=== PATIENT | male | born 1960 | race Caucasian/White ===

== ENCOUNTER 2025-07-14 19:01 | Emergency (ER) | payer MEDICARE, SELFPAY ==
[2025-07-14 19:05] VITALS: BP 180/59; PULSE 62; TEMP 36.9; O2SAT 98; BMI 50.1
--- NOTE | 2025-07-14 19:15 | PC.NURSE ---
Fall approx. 2 hours ago from standing. Pain present to mid left back, patient reports having chronic back pain and sees a pain specialist for this. Moves from w/c to bed with use of cane.
--- NOTE | 2025-07-14 19:23 | CT_ITS ---
The [address] [address] Patient Name: MIKE ZAMUDIO MRN: [id number] date: 1960 Sex: M Assigned Patient Location: ED.MAIN Current Patient Location: ED.MAIN Accession/Order Number: [id number] Exam Date: 07/14/2025 20:25 Report Date: 07/14/2025 21:06 At the request of: SHYLA VIGIL Procedure: CT head/brain wo con Unenhanced head CT TECHNIQUE: Contiguous axial imaging of the head. The CT exam was performed using one or more the following dose reduction techniques: Automated exposure control, adjustment of the MA and/or Kv according to patient size, or use of the iterative reconstruction technique. COMPARISON: None HISTORY: Fell. Right rib pain. Right flank pain. Low back pain VENTRICLES: Within normal limits ATROPHY: None BRAIN PARENCHYMA: Adequate walker-white matter differentiation identified. HEMORRHAGE: None HERNIATION: No mass effect or herniation INFARCTION: No recent vascular distribution infarction is seen. EXTRA-AXIAL FLUID COLLECTIONS None MIDBRAIN: Unremarkable MOLLY: Unremarkable MEDULLA: Unremarkable SINUSES: Unremarkable ORBITS: Grossly unremarkable MASTOIDS: Unremarkable BONY STRUCTURES Intact ADDITIONAL FINDINGS: CT/CT head/brain wo con IMPRESSION: No acute findings. Impression dictated by: Corey Marcus M.D. 07/14/2025 9:06 PM Dictation Location: [place] [address] Electronically authenticated by: [id number] Y Date: 07/14/2025 21:06
--- NOTE | 2025-07-14 19:23 | CT_ITS ---
The [address] [address] Patient Name: MIKE ZAMUDIO MRN: [id number] date: 1960 Sex: M Assigned Patient Location: ED.MAIN Current Patient Location: ED.MAIN Accession/Order Number: [id number] Exam Date: 07/14/2025 20:25 Report Date: 07/14/2025 21:20 At the request of: SHYLA VIGIL Procedure: CT abdomen pelvis w con CT Chest, Abdomen and Pelvis with contrast TECHNIQUE: Axial imaging with 2-D reconstruction. 100 cc of Omnipaque 300The CT exam was performed using one or more the following dose reduction techniques: Automated exposure control, adjustment of the MA and/or Kv according to patient size, or use of the iterative reconstruction technique. History: Fell. Right rib pain. Right flank pain. Low back pain COMPARISON: None THYROID: No significant thyroid abnormality identified. AIRWAY: Central airway is patent. ESOPHAGUS: Esophagus normal course and caliber. HEART: Heart is not enlarged. PERICARDIAL EFFUSION: None CORONARY ARTERY CALCIFICATION: None MEDIASTINUM: Nonenlarged mediastinal lymph nodes identified. HILAR REGION: No hilar mass or adenopathy is seen. THORACIC AORTA: No thoracic aortic aneurysm or dissection. No atherosclerosis LUNG INTERSTITIUM: No infiltrate or congestion identified. PLEURAL EFFUSION No pleural effusion identified. PNEUMOTHORAX: No pneumothorax seen. LUNG NODULE: No lung nodules identified. CHEST WALL: No chest wall abnormality seen. The bony chest intact. LIVER: No hepatic mass or intrahepatic biliary ductal dilatation is identified. Normal density of the liver parenchyma identified. GALLBLADDER: No gallbladder abnormalities identified. BILE DUCTS: No biliary duct dilatation identified. SPLEEN: Normal PANCREAS: Unremarkable ADRENAL GLANDS: The adrenal glands are unremarkable. KIDNEYS: Unremarkable ABDOMINAL AORTA: The abdominal aorta is normal. RETROPERITONEUM: No significant retroperitoneal abnormalities identified. STOMACH:Nondistended SMALL BOWEL: The small bowel loops are nondistended. APPENDIX: The appendix is normal. COLON: There is no colitis or diverticulitis. URINARY BLADDER: Urinary bladder is unremarkable. REPRODUCTIVE STRUCTURES: The reproductive structures are unremarkable. FREE AIR: None FREE FLUID: None ABDOMINAL WALL: No subcutaneous soft tissue abnormality identified. INGUINAL HERNIA: None BONES:Transverse fracture involving the T9 superior endplate and T8-9 anterior osteophyte extending into the T8 posterior elements. Ankylosing spondylitis throughout the cervical thoracic and lumbar spine CT/CT abdomen pelvis w con IMPRESSION: Transverse fracture involving the anterior T8-9 continuous osteophyte and superior portion of the T9 vertebral body extending into the posterior element of the T8 vertebral body. Minimal displacement. No acute chest or abdominal pelvic findings otherwise seen. The anterior portion of the abdomen not included on study. This is secondary patient body habitus. Findings of ankylosing spondylitis. PRELIMINARY RESULTS: None given Impression dictated by: Corey Marcus M.D. 07/14/2025 9:20 PM Dictation Location: [employer] Electronically authenticated by: [id number] Y Date: 07/14/2025 21:20
--- NOTE | 2025-07-14 19:23 | CT_ITS ---
The [address] [address] Patient Name: MIKE ZAMUDIO MRN: [id number] date: 1960 Sex: M Assigned Patient Location: ED.MAIN Current Patient Location: ED.MAIN Accession/Order Number: [id number] Exam Date: 07/14/2025 20:25 Report Date: 07/14/2025 21:09 At the request of: SHYLA VIGIL Procedure: CT cervical spine wo con CT Cervical Spine withoutcontrast TECHNIQUE: Axial imaging with 2-D and 3-D reconstruction. The CT exam was performed using one or more the following dose reduction techniques: Automated exposure control, adjustment of the MA and/or Kv according to patient size, or use of the iterative reconstruction technique. COMPARISON: None HISTORY: Fell. Head injury POST SURGERY CHANGES: None BONY ALIGNMENT: Straightening BONY SPINAL CANAL: Patent central bony canal FRACTURE: None BONY LESIONS: None SOFT TISSUES: Unremarkable DEGENERATIVE CHANGES: Multilevel spondylosis and facet degeneration LUNG APICES: Unremarkable ADDITIONAL FINDINGS: CT/CT cervical spine wo con IMPRESSION: No acute process Impression dictated by: Corey Marcus M.D. 07/14/2025 9:09 PM Dictation Location: [place] [address] Electronically authenticated by: [id number] Y Date: 07/14/2025 21:09
--- NOTE | 2025-07-14 19:23 | CT_ITS ---
The [address] [address] Patient Name: MIKE ZAMUDIO MRN: [id number] date: 1960 Sex: M Assigned Patient Location: ED.MAIN Current Patient Location: ED.MAIN Accession/Order Number: [id number] Exam Date: 07/14/2025 20:25 Report Date: 07/14/2025 21:20 At the request of: SHYLA VIGIL Procedure: CT abdomen pelvis w con CT Chest, Abdomen and Pelvis with contrast TECHNIQUE: Axial imaging with 2-D reconstruction. 100 cc of Omnipaque 300The CT exam was performed using one or more the following dose reduction techniques: Automated exposure control, adjustment of the MA and/or Kv according to patient size, or use of the iterative reconstruction technique. History: Fell. Right rib pain. Right flank pain. Low back pain COMPARISON: None THYROID: No significant thyroid abnormality identified. AIRWAY: Central airway is patent. ESOPHAGUS: Esophagus normal course and caliber. HEART: Heart is not enlarged. PERICARDIAL EFFUSION: None CORONARY ARTERY CALCIFICATION: None MEDIASTINUM: Nonenlarged mediastinal lymph nodes identified. HILAR REGION: No hilar mass or adenopathy is seen. THORACIC AORTA: No thoracic aortic aneurysm or dissection. No atherosclerosis LUNG INTERSTITIUM: No infiltrate or congestion identified. PLEURAL EFFUSION No pleural effusion identified. PNEUMOTHORAX: No pneumothorax seen. LUNG NODULE: No lung nodules identified. CHEST WALL: No chest wall abnormality seen. The bony chest intact. LIVER: No hepatic mass or intrahepatic biliary ductal dilatation is identified. Normal density of the liver parenchyma identified. GALLBLADDER: No gallbladder abnormalities identified. BILE DUCTS: No biliary duct dilatation identified. SPLEEN: Normal PANCREAS: Unremarkable ADRENAL GLANDS: The adrenal glands are unremarkable. KIDNEYS: Unremarkable ABDOMINAL AORTA: The abdominal aorta is normal. RETROPERITONEUM: No significant retroperitoneal abnormalities identified. STOMACH:Nondistended SMALL BOWEL: The small bowel loops are nondistended. APPENDIX: The appendix is normal. COLON: There is no colitis or diverticulitis. URINARY BLADDER: Urinary bladder is unremarkable. REPRODUCTIVE STRUCTURES: The reproductive structures are unremarkable. FREE AIR: None FREE FLUID: None ABDOMINAL WALL: No subcutaneous soft tissue abnormality identified. INGUINAL HERNIA: None BONES:Transverse fracture involving the T9 superior endplate and T8-9 anterior osteophyte extending into the T8 posterior elements. Ankylosing spondylitis throughout the cervical thoracic and lumbar spine CT/CT chest w con IMPRESSION: Transverse fracture involving the anterior T8-9 continuous osteophyte and superior portion of the T9 vertebral body extending into the posterior element of the T8 vertebral body. Minimal displacement. No acute chest or abdominal pelvic findings otherwise seen. The anterior portion of the abdomen not included on study. This is secondary patient body habitus. Findings of ankylosing spondylitis. PRELIMINARY RESULTS: None given Impression dictated by: Corey Marcus M.D. 07/14/2025 9:20 PM Dictation Location: [employer] Electronically authenticated by: [id number] Y Date: 07/14/2025 21:20
--- NOTE | 2025-07-14 19:29 | ED.GENADUL1 ---
HPI HPI - General Adult General Chief complaint: Fall Stated complaint: FALL Time Seen by Provider: 07/14/25 19:12 Source: patient and family Mode of arrival: Wheelchair Limitations: no limitations History of Present Illness Onset (ago): hour(s) (3 hrs) Location: Reports head, face, back and upper extremity Severity: moderate Treatments prior to arrival: Reports other (percocet) Related Data Home Medications ?Medication ?Instructions ?Recorded ?Confirmed amlodipine 10 mg tablet 10 mg PO DAILY 07/14/25 07/14/25 bumetanide 1 mg tablet 1 mg PO DAILY 07/14/25 07/14/25 metoprolol succinate 100 mg 100 mg PO DAILY 07/14/25 07/14/25 tablet,extended release 24 hr oxybutynin 07/14/25 oxycodone-acetaminophen 10 mg-325 1 tab PO Q4H 07/14/25 07/14/25 mg tablet (Endocet) pregabalin 50 mg capsule (Lyrica) 50 mg PO Q8H 07/14/25 07/14/25 Previous Rx's ?Medication ?Instructions ?Recorded tizanidine 4 mg tablet 4 mg PO Q8H PRN muscle spasm #10 07/14/25 tabs Allergies Allergy/AdvReac Type Severity Reaction Status Date / Time cephalexin (From Keflex) Allergy unknown Verified 07/14/25 19:11 gabapentin Allergy Unknown Verified 07/14/25 19:11 Opioid HPI Opioid Management Most Recent Opioid Data: Last Pain Scale 9 07/14/25, 19:05 Review of Systems ROS Status of ROS 10 or more systems reviewed and unremarkable except as noted in history and below Constitutional Denies: fever or chills Eyes Denies: change in vision or blurry vision Ears, nose, mouth, and throat Denies: throat pain, ear pain, ear discharge, change in hearing, nasal discharge, nasal congestion or nose bleeds Cardiovascular Denies: chest pain Respiratory Denies: shortness of breath or cough Gastrointestinal Denies: abdominal pain, nausea or vomiting Genitourinary Denies: blood in urine Musculoskeletal Reports: back pain, neck pain and extremity pain Neurological Reports: headache Psychiatric Denies: anxiety Hematologic/Lymphatic Denies: easy bruising Allergic/Immunologic Denies: hives PFSH PFSH Social History Little interest or pleasure in doing things: not at all Feeling down, depressed, or hopeless: not at all Exam Constitutional Vital Signs, click to edit/add: Last Vital Signs Temp 98.4 F 07/14/25 19:05 Pulse 64 07/14/25 20:40 Resp 20 07/14/25 20:40 BP 174/70 H 07/14/25 20:40 Pulse Ox 99 07/14/25 20:40 O2 Del Method Room Air 07/14/25 20:40 Documenting provider has reviewed patient's vital signs: yes Common normals: no apparent distress and oriented x3 General appearance: cooperative HENMT Head and scalp: contusion (frontal) Face and sinus: sinuses nontender Nose: nares normal, no nasal discharge and external nose abnormal; external nose not normal (abrasion upper portion of nose) General ear: hearing grossly impaired External ear: external ears normal Tympanic membrane: TMs normal bilaterally Neck & C-Spine General: other (Decreased range of motion/patient states not new finding); no tenderness Chest Common normals: inspection of chest normal; palpation of chest abnormal Chest: localized rib tenderness with anteroposterior compression (Included left flank and ribs) and tenderness Respiratory Common normals: normal respiratory effort and clear to auscultation bilaterally Effort & inspection: able to speak in complete sentences and symmetric chest movement Cardio Common normals: regular rate, regular rhythm, S1 normal heart sound and S2 normal heart sound Back & Pelvis General back: no CVA tenderness Thoracic spine/upper back: normal to inspection; no thoracic spinal tenderness Lumbar spine/lower back: paraspinal muscle tenderness Lumbar paraspinal muscle tenderness: bilateral Extremity General: normal exam except as noted and edema Left upper extremity: hand and digits (Laceration dorsum without any bony tenderness to the left hand.) Neuro Common normals: oriented x3 Sensorium/orientation: awake and alert Psych Common normals: mental status grossly normal, thought process normal, cooperative, affect normal and speech normal Course Vital Signs Vital signs: Vital Signs Temperature 98.4 F 07/14/25 19:05 Pulse Rate 62 07/14/25 19:05 Respiratory Rate 18 07/14/25 19:05 Blood Pressure 180/59 H 07/14/25 19:05 Pulse Oximetry 98 07/14/25 19:05 Oxygen Delivery Method Room Air 07/14/25 19:05 Temperature 98.4 F 07/14/25 19:05 Pulse Rate 64 07/14/25 20:40 Respiratory Rate 20 07/14/25 20:40 Blood Pressure 174/70 H 07/14/25 20:40 Pulse Oximetry 99 07/14/25 20:40 Oxygen Delivery Method Room Air 07/14/25 20:40 Medical Decision Making MDM Narrative Medical decision making narrative: Mechanical fall on step. Has left-sided rib and flank tenderness. Diffuse low back tenderness negative facial tenderness although abrasion noted to nose. Contusion noted to forehead. Will add basic trauma labs CBC CMP PT PTT patient denies any kidney disease denies any contrast allergy. He does note that he has some claustrophobia we will add 1 mg IV Ativan. Discussed plan of care with patient including CT head neck chest abdomen pelvis patient agreeable with plan of care. Ativan not available will switch to Valium 5 mg IV. Patient feels better sitting on edge of bed remains conversant. Discussed negative head CT and cervical spine CT we are waiting await balance of CT scans for discharge. Will add Zanaflex 4 mg every 8 hours #10 for home use to take his medications as prescribed do not drive or operate while taking any pain medication or muscle relaxer as it may cause drowsiness patient states he understands. Differential Diagnosis Differential Diagnosis: Head injury, Rib fracture, retroperitoneal bleed. Lab Data Labs: Lab Results 07/14/25 Range/Units 19:40 WBC 11.0 (4.0-11.0) 10^3/uL RBC 5.55 (4.70-6.10) 10^6/uL Hgb 15.1 (14.0-18.0) g/dL Hct 46.2 (42.0-54.0) % MCV 83.2 (80.0-94.0) fL MCH 27.2 (25.9-34.0) pg MCHC 32.7 (29.9-35.2) g/dL RDW 14.0 (11.0-15.0) % Plt Count 177 (150-450) 10^3/uL MPV 10.4 (9.5-13.5) fL Neut % (Auto) 79.1 H (43.0-75.0) % Lymph % (Auto) 10.2 L (20.5-60.0) % Hettinger % (Auto) 6.9 (1.7-12.0) % Eos % (Auto) 2.8 (0.9-7.0) % Baso % (Auto) 0.5 (0.2-2.0) % Neut # (Auto) 8.7 H (1.4-6.5) 10^3/uL Lymph # (Auto) 1.1 L (1.2-3.8) 10^3/uL Hettinger # (Auto) 0.8 (0.3-0.8) 10^3/uL Eos # (Auto) 0.3 (0.0-0.7) 10^3/uL Baso # (Auto) 0.1 (0.0-0.1) 10^3/uL Abs Immat Gran (auto) 0.06 H (0.00-0.03) 10^3/uL Imm/Tot Granulo (auto) 0.5 (0.0-0.5) % PT 10.5 (9.0-11.6) sec INR 0.99 APTT 27.9 (22.3-36.2) sec Sodium 141 (136-145) mmol/L Potassium 5.0 (3.5-5.1) mmol/L Chloride 104 (98-107) mmol/L Carbon Dioxide 28.3 (21.0-32.0) mmol/L Anion Gap 13.7 BUN 11.0 (7.0-18.0) mg/dL Creatinine 0.99 (0.70-1.30) mg/dL Est GFR ( Amer) >60 (>=60 mL/min/1.73m^2) Est GFR (Non-Af Amer) >60 (>=60 mL/min/1.73m^2) BUN/Creatinine Ratio 11.1 Glucose 96 (74-106) mg/dL Calcium 9.1 (8.5-10.1) mg/dL Total Bilirubin 0.6 (0.2-1.0) mg/dL AST 20 (15-37) U/L ALT 29 (16-63) U/L Alkaline Phosphatase 105 (46-116) U/L Total Protein 8.4 H (6.4-8.2) g/dL Albumin 4.3 (3.4-5.0) g/dL Globulin 4.1 g/dL Albumin/Globulin Ratio 1.0 Discharge Plan Discharge Chief Complaint: Fall Clinical Impression: Rib pain on left side, Muscle spasm, Skin tear Head injury Qualifiers: Encounter type: initial encounter Qualified Code(s): S09.90XA - Unspecified injury of head, initial encounter Fall Qualifiers: Encounter type: initial encounter Qualified Code(s): W19.XXXA - Unspecified fall, initial encounter Back pain Qualifiers: Back pain location: low back pain Chronicity: unspecified Back pain laterality: bilateral Sciatica presence: unspecified whether sciatica present Qualified Code(s): M54.50 - Low back pain, unspecified Abrasion of face Qualifiers: Encounter type: initial encounter Qualified Code(s): S00.81XA - Abrasion of other part of head, initial encounter Fracture of T9 vertebra Qualifiers: Encounter type: initial encounter Fracture type: closed Fracture morphology: unspecified fracture morphology Qualified Code(s): S22.079A - Unspecified fracture of T9-T10 vertebra, initial encounter for closed fracture Patient Disposition: Home, Self-Care Time of Disposition Decision: 21:33 Condition: Good Mode of Transportation: Private Vehicle Prescriptions / Home Meds: New tizanidine 4 mg tablet 4 mg PO Q8H PRN (Reason: muscle spasm) Qty: 10 0RF No Action oxycodone-acetaminophen [Endocet] 10-325 mg tablet 1 tab PO Q4H pregabalin [Lyrica] 50 mg capsule 50 mg PO Q8H amlodipine 10 mg tablet 10 mg PO DAILY bumetanide 1 mg tablet 1 mg PO DAILY metoprolol succinate 100 mg tablet extended release 24 hr 100 mg PO DAILY oxybutynin 10 mg tablet Print Language: Macedonian Instructions: Head Injury (ED), Abrasion (ED), Back Pain (ED) Additional Instructions: Follow-up with primary care physician, your orthopedics doctor and pain management. Return to ER if any symptoms worsen or new symptoms develop. Wound care includes wash with gentle soap and water reapply bacitracin dressing twice daily. Do not drive or operate while taking pain medication or muscle relaxer may cause drowsiness. Referrals: Pain management doctor [Other] - As soon as possible Referral Note: Your Pain management Dr. Your Orthopedic doctor [Other] - As soon as possible ERIKA HINES [Primary Care Provider, Family Practice] - As soon as possible Physician,Non-Staff, [Physician] - 1 week Discharge Date/Time: 07/14/25 21:46
[2025-07-14 19:49] LABS: Hematocrit 46.2 % (42.0-54.0); Hemoglobin 15.1 g/dL (14.0-18.0); Immature Granulocytes Abs Auto 0.06 10^3/uL (0.00-0.03); Immature Granulocytes Pct Auto 0.5 % (0.0-0.5); Lymphocytes Absolute Auto 1.1 10^3/uL (1.2-3.8); Mean Corpuscular HGB Conc 32.7 g/dL (29.9-35.2); Mean Corpuscular Hemoglobin 27.2 pg (25.9-34.0); Mean Corpuscular Volume 83.2 fL (80.0-94.0); Platelet Count 177 10^3/uL (150-450); Red Blood Count 5.55 10^6/uL (4.70-6.10); White Blood Count 11.0 10^3/uL (4.0-11.0)
[2025-07-14 20:01] LABS: Alanine Aminotransferase 29 U/L (16-63); Albumin Globulin Ratio 1.0; Albumin Level 4.3 g/dL (3.4-5.0); Alkaline Phosphatase 105 U/L (46-116); Anion Gap 13.7; Aspartate Amino Transferase 20 U/L (15-37); Blood Urea Nitrogen 11.0 mg/dL (7.0-18.0); Calcium 9.1 mg/dL (8.5-10.1); Carbon Dioxide 28.3 mmol/L (21.0-32.0); Chloride 104 mmol/L (98-107); Estimated GFR (African America >60 (>=60 mL/min/1.73m^2); Estimated GFR (Non-African Ame >60 (>=60 mL/min/1.73m^2); Globulin 4.1 g/dL; Glucose 96 mg/dL (74-106); Potassium 5.0 mmol/L (3.5-5.1); Sodium 141 mmol/L (136-145); Total Protein 8.4 g/dL (6.4-8.2)
[2025-07-14 20:03] LABS: INR 0.99; Partial Thromboplastin Time 27.9 sec (22.3-36.2); Prothrombin Time 10.5 sec (9.0-11.6)
[2025-07-14] MEDS: DIAZEPAM 10 MG/2 ML SYRINGE 5 MG IV (20:05)
[2025-07-14 20:40] VITALS: BP 174/70; PULSE 64; O2SAT 99
== END 2025-07-14 21:46 | disposition home or self-care (01) ==
PROVIDERS: Physician Assistant; Emergency Provider Internal Medicine
DX: S09.90XA Unspecified injury of head, initial encounter (principal); R07.81 Pleurodynia; M62.838 Other muscle spasm; W10.8XXA Fall (on) (from) other stairs and steps, initial encounter; M54.50 Low back pain, unspecified; S00.31XA Abrasion of nose, initial encounter; S22.079A Unspecified fracture of T9-T10 vertebra, initial encounter for closed fracture; S61.412A Laceration without foreign body of left hand, initial encounter
CPT/HCPCS: 36415; 70450; 71260; 72125; 74177; 76376; 80053; 85025; 85610; 85730; 96374; 99285; J3360; Q9967

== ENCOUNTER 2025-08-24 13:33 | Outpatient (OUT) | payer MEDICARE, SELFPAY ==
--- NOTE | 2025-08-24 13:55 | XR_ITS ---
The [address] [address] Patient Name: MIKE ZAMUDIO MRN: [id number] date: 1960 Sex: M Assigned Patient Location: RAD Current Patient Location: [facility] Accession/Order Number: [id number] Exam Date: 08/24/2025 14:05 Report Date: 08/24/2025 14:48 At the request of: NON-STAFF PHYSICIAN MD Procedure: XR thoracic spine 3V THORACIC SPINE - - 3 views CLINICAL HISTORY: Radiculopathy, lumbar region COMPARISON: None FINDINGS: Vertebral body heights appear maintained. Bones are grossly demineralized. Flowing osteophytes suggestive of DISH. Pedicles appear intact. XR/XR thoracic spine 3V IMPRESSION: DISH. NO ACUTE PROCESS. Impression dictated by: Jessica Bolton Jr.OBambi 08/24/2025 2:48 PM Dictation Location: [place] [address] Electronically authenticated by: [id number] Y Date: 08/24/2025 14:48
== END 2025-08-24 13:34 | disposition home or self-care (01) ==
DX: M54.16 Radiculopathy, lumbar region (principal); M48.061 Spinal stenosis, lumbar region without neurogenic claudication; M54.14 Radiculopathy, thoracic region; M48.04 Spinal stenosis, thoracic region; M48.14 Ankylosing hyperostosis [Forestier], thoracic region
CPT/HCPCS: 72072